=== PATIENT | female | born 2005 | race Caucasian/White ===

== ENCOUNTER 2024-01-23 08:00 | Outpatient (RCR) | payer BC, SELFPAY ==
--- NOTE | 2024-01-10 09:38 | OT.OPOE ---
OT Outpatient Ortho Eval OT Outpatient Ortho Eval* Start: 01/10/24 08:14 Freq: Status: Active Protocol: Document 01/10/24 09:10 LCN (Rec: 01/10/24 09:32 LCN [id number]) E-signed By Tammie Martinez, OTR/L, CLT OT OP Ortho Eval Details Complexity Complexity Low Insurance Information Insurance Information Blue Cross/Blue Shield Outpatient History/Precautions Current Condition/Medical Diagnosis Referring Provider Joshua Peoples MD Medical Diagnoses L Wrist fracture Treatment Diagnosis l wrist pain, stiffness Date of Onset 11/30/23 Medical Conditions Arthritis Other Conditions OA in L knee, h/o patellofemoral pain October 2020 Medical/Functional History Medical History Reviewed Yes Social History 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 Was seen by ortho there and fit with EXOS system BOA bracing, non- operative mgmt. Was guided to resume care in [place] upon return home. Xray with Dr. Peoples 12/14/23 revealed good healing with 15 degree dorsal loss and 6 degree loss of radial inclination. Full healing noted via x ray 12/26/23, was cleared to remove bracing and continue with equestrian sport , cross fit w slow re-entry with L hand. Has progressed to modified push ups, but dorsal wrist lunate pn during full weightbearing into palm. Pain Assessment Pain Pain Yes Pain Comments 3/10 only with weightbearing into palm, now able to manage reins with L hand without pain . L hand/wrist do fatigue, feesl stiff in the morning. Range of Motion and Strength Wrist Range of Motion and Strength Wrist Range of Motion and Strength WR EX to 60 of 80 AROM, 68 AAROM. WR FL to 53 AROM and 60 AAROM, improves to 68 when combined with UD. Tender with overpressure, dorsal/volar lunate area. Supination pronation 90 o90, no pain with over pressure. No edema, present, some fibrous soft tissue texture changes in forearm CET, CFT. Fovea test (-) at [facility]. Thenar wasting noted from casting/bracing. MMT is 4/5 for WE WF, RD, supination, pronation and 5/5 for UD, no pain. Hand Pinch/Double End Production Grinder Strength Hand Pinch/Double End Production Grinder Strength Hand Pinch/Double End Production Grinder Strength Left Hand,Right Hand Left Hand Double End Production Grinder Strength Position 1 in Elbow 32 Flexion (lbs) Double End Production Grinder Strength Position 2 in Elbow 38 Extension (lbs) Lateral Pinch Strength (lbs) 14 Three Point Pinch (lbs) 7 Right Hand Double End Production Grinder Strength Position 1 in Elbow 60 Flexion (lbs) Double End Production Grinder Strength Position 2 in Elbow 55 Extension (lbs) Lateral Pinch Strength (lbs) 15 Three Point Pinch (lbs) 10 OT Problems Problems Problems Decreased Strength,Decreased Range of Motion,Pain,Lifting, Gripping Problems Comments opeing water bottle, carrying buckets of feed/water/using R hand more. Other Problems Opening Containers,Fasteners Patient Potential Excellent Assessment Assessment Assessment Given Mariluz's residual issues with pain during dynamic resistive carrying/ weightbearing, ROM and strength loss of L wrist limiting higher level horse care and sport tasks, she would benefit from skilled OT to address these areas. Occupational Therapy Treatment Plan - OP Potential Rehabilitation Potential Excellent Set Goals Goals Set with Patient Yes Goals Goals In 8 weeks, pt will demonstrate:? 1) Decreased pn to <2/10 80% of the time and improved dynamic wrist stability with sustained gripping, carrying groceries, feed/water buckets and full position push ups/ burpees. 2) I HEP for stretching, gradual strengthening and self mgmt strategies. 3) improved L acid mixer strength to 50# and with L wrist pain < 1 /10. Treatment Plan Treatment Plan Evaluation,Edema Control,Joint Mobilization,Manual Therapy, Therapeutic Exercise,Self Care /Home Management,Education Expected Frequency 1-2x Week Expected Duration 4-6 Weeks Home Program Home Program Home Program Initiated Home Program Specifics Red flex bar with WR EX, FL, RD, UD, supination and pronation planes. Certification Certification Information Clinic ID # [id number] Initial Certification Date 01/10/24 Recertification Due Date 04/09/24 Provider Signature Required Communication Only-No Signature Required
--- NOTE | 2024-01-30 16:24 | OT.OPODN ---
OT Outpatient Ortho Daily Note OT Outpatient Ortho Daily Note* Start: 01/10/24 08:14 Freq: Status: Active Protocol: Document 01/30/24 16:17 LCN (Rec: 01/30/24 16:24 LCN [id number]) E-signed By Tammie Martinez, OTR/L, CLT Type of Note Type of Note Type of Note Discharge Note Insurance Information Insurance Information Blue Cross/Blue Shield Outpatient History/Precautions Current Condition/Medical Diagnosis Referring Provider Joshua Peoples MD Medical Diagnoses L Wrist fracture Treatment Diagnosis l wrist pain, stiffness Date of Onset 11/30/23 Medical Conditions Arthritis Other Conditions OA in L knee, h/o patellofemoral pain October 2020 Medical/Functional History Medical History Reviewed Yes Social History 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 Micro movements with reins in slight UD is tiring and and achy still. Pain Assessment Pain Pain Comments 10/15 only with weightbearing into palm, now able to manage reins with L hand without pain . L hand/wrist do fatigue, feesl stiff in the morning. OT OP Daily Ortho Note/Assessment Therapeutic Exercise Therapeutic Exercise Comments Has a red flex bar at her gym. Continued with dynamic strengthening using [employer] devulcanizer head + EXT, rn endocrinology FL, a class lineman + UD, RD planes 5 sec holds. 10 reps per plane, shaky tired following. Hand Pinch/Fur Trapper Strength Comments Comments 01/23/24-- Fur Trapper improved to 38# in pos 1 and 32# in pos 2. WR EX to 64 AROM and 75 AAROM. WR FL to 82 AROM and 85 AAROM. OT Problems Problems Problems Decreased Strength,Decreased Range of Motion,Pain,Lifting, Gripping Problems Comments opeing water bottle, carrying buckets of feed/water/using R hand more. Other Problems Opening Containers,Fasteners Patient Potential Excellent Assessment Assessment Assessment Progressing with dynamic stabilizing for rein work, and working towards ful weight bearing during push ups at the gym. Given Mariluz's residual issues with pain during dynamic resistive carrying/ weightbearing, ROM and strength loss of L wrist limiting higher level horse care and sport tasks, she would benefit from skilled OT to address these areas. Occupational Therapy Treatment Plan - OP Goals Goals After 2 visits of OT Mariluz demonstrates:? 1) Decreased pn to <2/10 80% of the time and improved dynamic wrist stability with sustained gripping, carrying groceries, feed/water buckets and full position push ups/ burpees. (01/30/24--self PROGRESSING WITH HEP) 2) I HEP for stretching, gradual strengthening and self mgmt strategies. GOAL MET 01/23/24. 3) improved L a class lineman strength to 50# and with L wrist pain < 1 /10. (01/30/24--self PROGRESSING WITH HEP) Treatment Plan Treatment Plan Evaluation,Edema Control,Joint Mobilization,Manual Therapy, Therapeutic Exercise,Self Care /Home Management,Education Expected Frequency 1-2x Week Expected Duration 4-6 Weeks Occupational Therapy Billing Units Treatment Minutes Timed Treatment Minutes 0 Total Treatment Minutes 0 Discharge Note Discharge Note Discharge Summary Per SUbjective and goal sections. 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 Was seen by ortho there and fit with EXOS system BOA bracing, non- operative mgmt. Was guided to resume care in [place] upon return home. Xray with Dr. Peoples 12/14/23 revealed good healing with 15 degree dorsal loss and 6 degree loss of radial inclination. Full healing noted via x ray 12/26/23, was cleared to remove bracing and continue with equestrian sport , cross fit w slow re-entry with L hand. Has progressed to modified push ups, but dorsal wrist lunate pn during full weightbearing into palm. Interventions Provided During Treatment Evaluation,Edema Control,Joint Mobilization,Manual Therapy, Therapeutic Exercise,Self Care /Home Management,Education Recommendations/Reason for Discharge Progress Cont w/HEP
== END 2024-01-30 16:29 | disposition home or self-care (01) ==
PROVIDERS: Visit Provider Orthopaedic Surgery
DX: S62.102A Fracture of unspecified carpal bone, left wrist, initial encounter for closed fracture (principal); M25.532 Pain in left wrist; M25.632 Stiffness of left wrist, not elsewhere classified; Z51.89 Encounter for other specified aftercare
CPT/HCPCS: 97110; 97140; 97165; 97535; X5282